=== PATIENT | female | born 1970 | race Caucasian/White ===

== ENCOUNTER 2019-07-18 11:12 | Emergency (ER) | payer MEDICAID ==
[~2019-07-18] VITALS: Ht 165.1 cm; Wt 65.8 kg
[2019-07-18 11:12] VITALS: BP_SYST 120
[2019-07-18] MEDS ORDERED: NACL 0.9% 1,000 ML IV ONE (12:15)
[2019-07-18] MEDS ORDERED: ALBUTEROL SULFATE 0.083% 2.5 MG/3 ML VIAL.NEB INH ONE ×2 (13:00→13:05)
[2019-07-18 13:13] LABS: CHLORIDE 108 mmol/L (98-107); CREATININE 0.86 mg/dL (0.55-1.30); GLUCOSE 104 mg/dL (70-99); POTASSIUM 3.9 mmol/L (3.5-5.1); SODIUM SERUM 139 mmol/L (136-145); UREA NITROGEN, BLOOD 6 mg/dL (8-21)
[2019-07-18 13:14] LABS: BASOPHILS # (AUTO) 0.1 K/uL (0.0-0.2); BASOPHILS % (AUTO) 0.7 % (0.0-2.0); EOSINOPHILS # (AUTO) 0.6 K/uL (0.0-0.4); EOSINOPHILS % (AUTO) 6.2 % (0.0-4.0); HEMATOCRIT 36.2 % (36-48); HEMOGLOBIN 12.3 g/dL (12.0-16.0); LYMPHOCYTES # (AUTO) 1.8 K/uL (1.0-5.5); LYMPHOCYTES % (AUTO) 18.7 % (20.5-51.5); MEAN CORPUSCULAR HEMOGLOBIN 31 pg (27-31); MEAN CORPUSCULAR HGB CONC 34 % (32-36); MEAN CORPUSCULAR VOLUME 92 fL (79.0-98.0); MONOCYTES # (AUTO) 0.9 K/uL (0.0-1.0); MONOCYTES % (AUTO) 9.9 % (1.7-9.3); NEUTROPHILS # (AUTO) 6.1 K/uL (1.8-7.7); NEUTROPHILS % (AUTO) 64.5 % (40.0-70.0); PLATELET COUNT (AUTO) 353 K/uL (130-430); RED BLOOD CELL COUNT(AUTO) 3.93 MIL/uL (4.2-6.2); RED CELL DISTRIBUTION WIDTH 12.5 % (9.0-15.0); WHITE BLOOD COUNT (AUTO) 9.4 K/uL (4.8-10.8)
[2019-07-18 13:15] LABS: ALANINE AMINOTRANSFERASE 58 U/L (12-78); ALBUMIN 2.8 g/dL (3.4-4.8); ASPARTATE AMINOTRANSFERASE 21 U/L (10-37); LIPASE 61 U/L (73-393); TOTAL BILIRUBIN 0.2 mg/dL (0.0-1.0)
[2019-07-18 13:17] LABS: ANION GAP < 3 (5-15); GFR AFRICAN AMERICAN 90 mL/min (>90)
[2019-07-18] MEDS ORDERED: PIPERACILLIN/TAZO 3.375 GM in NS 50 ML IV ONE (13:30)
[2019-07-18] MEDS ORDERED: metroNIDAZOLE 500 mg/NS 100 ML IV ONE (13:30)
[2019-07-18] MEDS ORDERED: PIPERACILLIN/TAZOBACTAM 3.375 GM/VIAL (ZOSYN) IV ONE (13:55)
[2019-07-18 14:43] VITALS: BP_SYST 118
== END 2019-07-18 14:43 | disposition home or self-care (01) ==
LOC: SED 11:12
DX: J40 Bronchitis, not specified as acute or chronic (principal); G89.18 Other acute postprocedural pain; R10.9 Unspecified abdominal pain; Z90.49 Acquired absence of other specified parts of digestive tract; Z88.2 Allergy status to sulfonamides; Z98.890 Other specified postprocedural states
CPT/HCPCS: 36415; 71045; 74176; 80053; 83605; 83690; 85025; 87040; 87086; 94640; 96365; 96366; 96368; 99284; J2543; J3490; J7030; J7613

== ENCOUNTER 2019-07-27 15:45 | Inpatient (IN) | payer MEDICAID ==
[~2019-07-27] VITALS: Ht 167.6 cm; Wt 94.0 kg
[2019-07-27 15:45] VITALS: BP_SYST 98
--- NOTE | 2019-07-27 15:45 | NUR ---
Patient triaged and placed in waiting room. VSS and patient appears in no acute distress at this time. Accompanied by SELF, awaiting available bed, and MD notified of need for MSE.
--- NOTE | 2019-07-27 16:07 | NUR ---
BROUGHT BACK TO BED #8 AND TRIAGED.REPORT GIVEN TO EDVIN
--- NOTE | 2019-07-27 16:10 | NUR ---
Patient complaining of 5 days hx of worsening post operative complications. Pt reports surgery on 07/11/19 in [place] and was treated. No abx treatment was administered post surgery. now complaining of mass to rlq that has doubled in size. pain /. no other complaints/injuries per patient or as noted. will continue to monitor.
--- NOTE | 2019-07-27 16:26 | NUR ---
DR SHAW AT BEDSIDE FOR EVALUATION
--- NOTE | 2019-07-27 16:32 | NUR ---
TAKEN TO RADIOLOGY VIA WHEELCHAIR
[2019-07-27] MEDS ORDERED: NACL 0.9% 1,000 ML IV ONE (16:45)
--- NOTE | 2019-07-27 16:53 | NUR ---
# 18 gauge angiocath placed to rac. Use of asceptic technique. Opsite placed over site. Blood return noted. Blood for lab drawn from site. Flushed with 10 cc of normal saline. No evidence of infiltration noted. Patient tolerated well.
[2019-07-27 17:09] LABS: BILIRUBIN,URINE NEGATIVE (NEGATIVE); BLOOD, URINE NEGATIVE (NEGATIVE); CLARITY/URINE SL CLOUDY (CLEAR); COLOR,URINE YELLOW (YELLOW); GLUCOSE,URINE NEGATIVE (NEGATIVE); KETONES,URINE NEGATIVE (NEGATIVE); LEUKOCYTE ESTERASE ,URINE NEGATIVE (NEGATIVE); NITRITE, URINE NEGATIVE (NEGATIVE); PH,URINE 7.5 (5.0-8.0); PROTEIN URINE NEGATIVE (NEGATIVE); UROBILINOGEN,URINE 0.2 (0.2-1.0)
[2019-07-27 17:12] LABS: BASOPHILS # (AUTO) 0.1 K/uL (0.0-0.2); BASOPHILS % (AUTO) 1.2 % (0.0-2.0); EOSINOPHILS # (AUTO) 0.2 K/uL (0.0-0.4); EOSINOPHILS % (AUTO) 2.9 % (0.0-4.0); HEMATOCRIT 41.7 % (36-48); LYMPHOCYTES # (AUTO) 3.2 K/uL (1.0-5.5); MEAN CORPUSCULAR HEMOGLOBIN 31 pg (27-31); MEAN CORPUSCULAR HGB CONC 34 % (32-36); MEAN CORPUSCULAR VOLUME 92 fL (79.0-98.0); MONOCYTES # (AUTO) 0.8 K/uL (0.0-1.0); MONOCYTES % (AUTO) 9.9 % (1.7-9.3); NEUTROPHILS # (AUTO) 3.5 K/uL (1.8-7.7); PLATELET COUNT (AUTO) 367 K/uL (130-430); RED BLOOD CELL COUNT(AUTO) 4.54 MIL/uL (4.2-6.2); RED CELL DISTRIBUTION WIDTH 12.6 % (9.0-15.0); WHITE BLOOD COUNT (AUTO) 7.8 K/uL (4.8-10.8)
[2019-07-27 17:13] LABS: CREATININE 0.95 mg/dL (0.55-1.30); POTASSIUM 3.8 mmol/L (3.5-5.1)
[2019-07-27 17:18] LABS: PROTHROMBIN TIME 9.6 SECS (9.5-12.5)
[2019-07-27 17:19] LABS: ALBUMIN 3.4 g/dL (3.4-4.8); TOTAL BILIRUBIN 0.3 mg/dL (0.0-1.0)
[2019-07-27 17:20] LABS: BACTERIA,URINE FEW /HPF (None Seen); MUCUS,URINE None Seen /LPF (None Seen); RBC,URINE 0-3 /HPF (0-3); URINE AMORPHOUS PHOSPHATES 3+ /HPF (None Seen); WBC,URINE NONE SEEN /HPF (0-3)
--- NOTE | 2019-07-27 17:32 | NUR ---
ER at bedside RE-examining patient.
[2019-07-27] MEDS ORDERED: metroNIDAZOLE 500 mg/NS 100 ML IV ONE (17:45)
[2019-07-27] MEDS ORDERED: fentaNYL CITRATE/PF 100 MCG/2 ML AMP IVP ONE (17:45)
[2019-07-27] MEDS ORDERED: NACL 0.9% 1,000 ML IV SCH (18:18)
--- NOTE | 2019-07-27 18:46 | NUR ---
Patient will be admitted to care of Dr. Bone. Admitted to Telemetry unit. Will go to room 114 B. Belongings list completed. Summary report printed. Report will be given at bedside.
--- NOTE | 2019-07-27 18:46 | NUR ---
Patient reports that she is full code.
--- NOTE | 2019-07-27 19:04 | NUR ---
ADMISSION: The patient, MONSE WARE, 48 y/o, F admitted by SUDHAKAR SOUTH MD, with the diagnosis of Abdominal abscess and elevated troponin to room 114 A was given written information regarding hospital policies, unit procedures and contact persons.
[2019-07-27 19:13] VITALS: BP_SYST 107
--- NOTE | 2019-07-27 19:15 | NUR ---
MD ROUNDS: DR GUTIERREZ MADE ROUNDS, MD ASKED PT WHAT TIME HE HAD FOOD OR DRINK LAST TIME , PT STATED 3 PM , MD SATTED SINCE SHE HAD FOOD LATE SHE CANNOT HAVE SURGERY TONIGHT DUE TO PT NEEDS GENERAL ANESTHESIA , SUDDENLY PT STATED "I DONT WANT TO STAY HERE TONIGHT IF YOU ARE NOT GOING TO DO SURGERY, I WANT TOLEAVE NOW AND WILL COME BACK IN THE MORNING " , MD EXPLAINED TO HER THE NEED TO STAY HOSPITAL FOR THE ANTIBIOTIC COURSE , PT STATED "I DONT CARE , I DONT WANT TO STAY HERE , I AM CLAUSTROPHOBIC, I DONT LIKE TO STAY IN THE HOSPITAL" . AN ALSO TRIED TO EXPLAIN HER DIAGNOSIS AND THE NEED FOR THE STAY . PT STATED I WANT TO GO NOW , I DONT WANT TO STAY HERE . EXPLAINED TO PT THAT" IF YOU ARE LEAVING NOW YOU HAS TO SIGN THE AMA THAT IS YOU ARE LEAVING AGAINST THE MEDICAL ADVISE" . PT STATED "I WILL SIGN THAT I DONT CARE I WANT TO LEAVE NOW" . PRIMARY RN AND C.N MADE AWARE . DR GUTIERREZ IS ALSO AWARE THAT PT IS LEAVING AGAINST MEDICAL ADVISE .
--- NOTE | 2019-07-27 19:36 | NUR ---
AMA: PT SIGNED AMA , PRIMARY RN YADIRA WITNESSED PTS SIGNATURE , REMOVED ID BAND AND IV CATH , DRESSING APPLIED TO THE IV SITE , NO ACTIVE BLEEDING NOTED . SECURITY NOTIFIED , FURNITURE MOVER HELPER BLANCA IS AWARE . PT WALKED TO OUTSIDE .ALL BELONGINGS ARE WITH THE PT . (PTS ADMISSION DATA / INVENTORY WAS NOT COMPLETED , BECAUSE ONCE DR GUTIERREZ MADE ROUNDS AND EXPLAINED TO HER ABOUT THE SURGERY , PT REFUSED TO CONTINUE THE QUESTIONNAIRE ASKED AND WANTS TO LEAVE AMA ).
[2019-07-28] MEDS ORDERED: PIPERACILLIN/TAZO 3.375/DEX-IS 50 ML IV SCH
== END 2019-07-27 19:36 | disposition left against medical advice (07) | DRG 721 ==
LOC: SED 15:45 → STU 18:18
PROVIDERS: ADMIT Internal Medicine; ATTEND Internal Medicine
DX: T81.41XA Infection following a procedure, superficial incisional surgical site, initial encounter (principal); L02.211 Cutaneous abscess of abdominal wall; Y83.6 Removal of other organ (partial) (total) as the cause of abnormal reaction of the patient, or of later complication, without mention of misadventure at the time of the procedure; Z53.21 Procedure and treatment not carried out due to patient leaving prior to being seen by health care provider; Y92.89 Other specified places as the place of occurrence of the external cause; Z90.49 Acquired absence of other specified parts of digestive tract; Z88.2 Allergy status to sulfonamides; J40 Bronchitis, not specified as acute or chronic; F40.240 Claustrophobia
CPT/HCPCS: 36415; 71045; 80053; 81000-TC; 83605; 84484; 85025; 85610-TC; 85730-TC; 87040-TC; 87086; 93005; 96361; 96365; 99285; G0378; J2543; J3010; J3490

== ENCOUNTER 2019-07-28 11:06 | Emergency (ER) | payer MEDICAID ==
[~2019-07-28] VITALS: Ht 167.6 cm; Wt 90.3 kg
[2019-07-28 11:31] VITALS: BP_SYST 123
[2019-07-28 12:52] VITALS: BP_SYST 132
== END 2019-07-28 13:08 | disposition left against medical advice (07) ==
LOC: SED 11:06
DX: L02.211 Cutaneous abscess of abdominal wall (principal); Z53.20 Procedure and treatment not carried out because of patient's decision for unspecified reasons; Z88.2 Allergy status to sulfonamides; Z88.8 Allergy status to other drugs, medicaments and biological substances; Z90.89 Acquired absence of other organs
CPT/HCPCS: 99281

== ENCOUNTER 2020-04-05 11:38 | Emergency (ER) | payer MEDICAID ==
[~2020-04-05] VITALS: Ht 167.6 cm; Wt 94.3 kg
[2020-04-05] MEDS ORDERED: NACL 0.9% 1,000 ML IV ONE (11:54)
[2020-04-05] MEDS ORDERED: ONDANSETRON HCL 4 MG/2 ML VIAL IVP ONE (12:00)
[2020-04-05] MEDS ORDERED: MORPHINE 4 MG/ML INJ. SYRINGE IVP ONE (12:00)
--- NOTE | 2020-04-05 12:00 | NUR ---
PATIENT TO ER #4 WITH ACCOUNTS RECEIVABLE CLERK, SAO2, ABP
[2020-04-05 12:15] VITALS: BP_SYST 134
[2020-04-05 12:18] LABS: BILIRUBIN,URINE NEGATIVE (NEGATIVE); BLOOD, URINE NEGATIVE (NEGATIVE); CLARITY/URINE CLEAR (CLEAR); COLOR,URINE YELLOW (YELLOW); GLUCOSE,URINE NEGATIVE (NEGATIVE); KETONES,URINE NEGATIVE (NEGATIVE); LEUKOCYTE ESTERASE ,URINE NEGATIVE (NEGATIVE); NITRITE, URINE NEGATIVE (NEGATIVE); PROTEIN URINE NEGATIVE (NEGATIVE); UROBILINOGEN,URINE 0.2 (0.2-1.0)
--- NOTE | 2020-04-05 12:25 | NUR ---
Pt c/o R abdomen pain x today. Pt rates pain/discomfort 5/10. Pt states feeling full more than pain. Last bowel movement x yesterday because of a coffee enema and castor oil. Pt states before the enema does not recall last normal bowel.
[2020-04-05 12:50] LABS: BASOPHILS # (AUTO) 0.1 K/uL (0.0-0.2); EOSINOPHILS # (AUTO) 0.3 K/uL (0.0-0.4); EOSINOPHILS % (AUTO) 4.9 % (0.0-4.0); HEMATOCRIT 43.1 % (36-48); HEMOGLOBIN 14.4 g/dL (12.0-16.0); LYMPHOCYTES # (AUTO) 2.4 K/uL (1.0-5.5); MEAN CORPUSCULAR HEMOGLOBIN 31 pg (27-31); MEAN CORPUSCULAR HGB CONC 34 % (32-36); MEAN CORPUSCULAR VOLUME 92 fL (79.0-98.0); MONOCYTES # (AUTO) 0.7 K/uL (0.0-1.0); MONOCYTES % (AUTO) 9.8 % (1.7-9.3); NEUTROPHILS # (AUTO) 3.2 K/uL (1.8-7.7); NEUTROPHILS % (AUTO) 48.3 % (40.0-70.0); PLATELET COUNT (AUTO) 292 K/uL (130-430); RED CELL DISTRIBUTION WIDTH 12.8 % (9.0-15.0); WHITE BLOOD COUNT (AUTO) 6.7 K/uL (4.8-10.8)
[2020-04-05 13:02] LABS: CALCIUM 8.6 mg/dL (8.4-11.0); CREATININE 0.74 mg/dL (0.55-1.30); POTASSIUM 3.9 mmol/L (3.5-5.1)
[2020-04-05 13:08] LABS: ALBUMIN 3.4 g/dL (3.4-4.8); TOTAL BILIRUBIN 0.2 mg/dL (0.0-1.0)
--- NOTE | 2020-04-05 13:27 | NUR ---
REASSESSMENT; PATIENT STATES HER SYMPTOMS ARE RESOLVED; DISPOSITION PENDING
[2020-04-05 13:33] LABS: INR 0.9 (0.8-1.2); PROTHROMBIN TIME 9.4 SECS (9.5-12.5)
--- NOTE | 2020-04-05 15:24 | NUR ---
REASSESSMENT; PATIENT STATES PAIN HAS RETURNED; ADMISSION PENDING
--- NOTE | 2020-04-05 15:50 | NUR ---
Patient does not wish to proceed with medical care recommended by Dr. Mcdonald. Patient given information related to possible complications, up to and including , which could occur as a result of leaving hospital at this time. Patient verbalizes understanding of risks involved leaving against medical advice. Patient has signed AMA form.
[2020-04-05 15:54] VITALS: BP_SYST 118
--- NOTE | 2020-04-05 15:56 | NUR ---
Patient given written and verbal discharge instructions and verbalizes understanding. ER Dr. Mcdonald discussed with patient the results and treatment provided. Patient in stable condition. ID arm band removed. IV catheter removed intact and dressing applied, no active bleeding. Rx of given. Patient educated on pain management and to follow up with PMD. Opportunity for questions provided and answered. Medication side effect fact sheet provided.
== END 2020-04-05 15:54 | disposition left against medical advice (07) ==
LOC: SED 11:38
DX: K59.00 Constipation, unspecified (principal); R10.31 Right lower quadrant pain; K45.8 Other specified abdominal hernia without obstruction or gangrene; Z88.2 Allergy status to sulfonamides; Z88.6 Allergy status to analgesic agent
CPT/HCPCS: 36415; 71045; 74176; 80053; 81003; 81025; 82150; 83605; 83690; 85025; 85610; 85730; 87040; 96374; 96375; 99285; J2270; J2405; J7030